=== PATIENT | female | born 1950 | race Caucasian/White ===

== ENCOUNTER 2019-01-11 10:45 | Inpatient (IN) ==
--- NOTE | 2018-12-23 14:39 | PAT Medication Instructions ---
Medication Instructions Date of Service December 23, 2018 Home Medications calcium carbonate-vitamin D3 [Calcium 600 + D(3)] 2 cap PO DAILY levothyroxine 112 mcg PO QAM meloxicam 15 mg PO DAILY PRN solifenacin [Vesicare] 10 mg PO HS venlafaxine 75 mg PO QAM ASK your surgeon for instructions meloxicam 15 mg PO DAILY PRN DO NOT take the morning of surgery calcium carbonate-vitamin D3 [Calcium 600 + D(3)] 2 cap PO DAILY Take morning of surgery With a small sip of water, OTHERWISE NOTHING TO EAT OR DRINK AFTER MIDNIGHT: levothyroxine 112 mcg PO QAM venlafaxine 75 mg PO QAM Take evening before surgery solifenacin [Vesicare] 10 mg PO HS Other Notes If you have any questions please call us at [phone] or [phone] or [phone] or [phone]
--- NOTE | 2018-12-27 12:11 | Anesthesiology Consultation ---
Date of Service December 27, 2018 Assessment & Plan (1) Encounter for pre-operative examination: Chart Review Chart Review: Acceptable Risk for Surgery (pending surgeon-ordered PCP clearance scheduled 01/05 (Romaine Camarillo)) and Patient seen in Pre Admission Testing Teaching & Discussion Pre-Anesthesia Teaching/Discussion Notes: Instructed NPO after midnight before surgery,except medications with 15 cc of water. Medication instructions provided according to the PAT guidelines. History Surgery Operation Date: 01/11/19 09:40 Proposed Procedures p Left Total Hip Arthroplasty - Mark Goldsmith MD Height/Weight Height: 5 ft 5 in Weight: 100 kg Allergies Allergy/AdvReac Type Severity Reaction Status Date / Time No Known Allergies Allergy Verified 12/22/18 10:10 Medications Home Medications Medication Instructions Recorded Confirmed Last Taken calcium carbonate-vitamin D3 2 cap PO DAILY 12/22/18 12/22/18 Unknown [Calcium 600 + D(3)] levothyroxine 112 mcg PO QAM 12/22/18 12/22/18 Unknown meloxicam 15 mg PO DAILY PRN 12/22/18 12/22/18 Unknown solifenacin [Vesicare] 10 mg PO HS 12/22/18 12/22/18 Unknown venlafaxine 75 mg PO QAM 12/22/18 12/22/18 Unknown Past Medical History Medical History Anxiety Cancer RIGHT BREAST CANCER S/P CHEMO AND RADIATION RIGHT KIDNEY TUMOR S/P EXCISION Hypothyroidism Obesity Osteoarthritis Urinary frequency Exercise / Class Metabolic Activity II 4-5 Yardwork/Stairs/Walk up hill Past Family History Family History Mother Family hx of colon cancer Past Surgical History Surgical History History of breast biopsy History of cholecystectomy History of colonoscopy History of thyroidectomy, total 2/2 THYROID NODULES History of tooth extraction History of total knee replacement B/L TKA: 04/07/16: SAB x 2 attempts + PNB at [facility] Hx of lumpectomy RIGHT SIDE X 2 Kidney tumor S/P REMOVAL S/P total abdominal hysterectomy and bilateral salpingo-oophorectomy Strabismus S/P REPAIR Past Anesthesia History No Hx of Anesthesia Complications and No Family Hx of Anesthesia Complications History of PONV No Hx of PONV and No Hx of Motion Sickness Social History Smoking Status: Never smoker Do You Dip or Chew Tobacco: No Hx Alcohol Use: No Hx Substance Use: No substance use type: does not use Review of Systems Patient denies chest pain, shortness of breath, dyspnea on exertion, reflux, cough, wheezing, palpitations. Physical Exam Vital Signs VITALS BP 110/73 P 79 TEMP 98.0 SP02 96%RA RESP 16 PHYSICAL Full neck and c-spine range of motion. Full TMJ range of motion. TMD 2.5 finger breaths Mallampati Score 3 Dentition: upper partial Lungs: clear throughout to auscultation Cardiac: regular rate and rhythm, no murmurs noted Spine: normal Carotid arteries: negative bruit Extremities: no edema Testing Laboratory Results 12/27/18 12:39 12/27/18 12:39 12/27/18 12/27/18 12/27/18 12:39 12:39 12:39 PT 10.9 INR 1.1 APTT 28.5 Hemoglobin A1c 5.5 Urine Color Urine Appearance Urine pH Ur Specific [place] Urine Protein Urine Glucose (UA) Urine Ketones Urine Nitrite Ur Leukocyte Esterase Urine WBC (Auto) Urine RBC (Auto) U Hyaline Cast (Auto) U Epithel Cells (Auto) Urine Bacteria (Auto) Blood Type O Positive Antibody Screen NEGATIVE 12/27/18 Unknown PT INR APTT Hemoglobin A1c Urine Color Yellow Urine Appearance Cloudy A Urine pH 5.5 Ur Specific [place] 1.017 Urine Protein Negative Urine Glucose (UA) Negative Urine Ketones Negative Urine Nitrite Positive A Ur Leukocyte Esterase 2+ H Urine WBC (Auto) >30 H Urine RBC (Auto) 5-10 H U Hyaline Cast (Auto) 1-5 U Epithel Cells (Auto) 5-10 H Urine Bacteria (Auto) 4+ H Blood Type Antibody Screen Surgeon made aware of abnormal UA* Electrocardiogram Date: 12/27/18 NSR at 69bpm. Septal infarct (cited on/before 03/09/16). NS TWA. *Anteroseptal infarct noted on 06/30/12 EKG; subsequent stress test done 06/30/12 to evaluate.* Chest X-Ray Date: 12/27/18 Large hiatus hernia. Old, healed left rib fractures. The herniated loop of bowel is gas-filled and moderately distended. Otherwise, no acute process within the chest. Stress Test Date: 06/30/12 Type: exercise (+ Cardiolite) "Normal" myocardial perfusion imaging uptake. EF 74%. No EKG evidence for myocardial ischemia. 7.1 METS. 91% MPHR.
[2018-12-27 13:14] LABS: Basophils # (auto) 0.05 K/uL (0-0.2); Basophils % (auto) 0.9 %; Eosinophils # (auto) 0.17 K/uL (0-0.5); Eosinophils % (auto) 3.2 %; Hematocrit (blood only) 39.8 % (37-47); Hemoglobin 13.5 g/dL (12.0-16.0); Immature Granulocytes # (auto) 0.02 K/uL (0.00-0.02); Immature Granulocytes % (auto) 0.4 %; Lymphocytes # (auto) 0.94 K/uL (1.2-3.4); Lymphocytes % (auto) 17.5 %; Mean Corpuscular Hgb Conc 33.9 g/dL (32-36); Mean Corpuscular Volume 84.3 fL (80-100); Mean Platelet Volume 11.3 fL (7.4-10.4); Monocytes # (auto) 0.89 K/uL (0.11-0.59); Monocytes % (auto) 16.5 %; Neutrophils # (auto) 3.31 K/uL (1.4-6.5); Neutrophils % (auto) 61.5 %; Platelet Count 193 K/uL (130-400); RDW Coefficient of Variation 14.2 % (11.5-14.5); RDW Standard Deviation 44.2 fL (36.4-46.3); Red Blood Count 4.72 M/uL (4.2-5.4); White Blood Count 5.38 K/uL (4.8-10.8)
[2018-12-27 13:19] LABS: Appearance Urine Cloudy (Clear); Bacteria Urine Automated 4+ (Negative); Bilirubin Urine Negative (Negative); Blood Urine 2+ (Negative); Color Urine Yellow; Glucose Urine UA Negative (Negative); Ketones Urine Negative (Negative); Leukocyte Esterase Urine 2+ (Negative); Nitrite Urine Positive (Negative); Protein Urine Negative (Negative); Specific Gravity Urine 1.017 (1.000-1.030); Urobilinogen Urine Negative (Negative); WBC Urine Automated >30 /hpf (0-5); pH Urine 5.5 (4.5-7.5)
[2018-12-27 13:29] LABS: INR 1.1 (0.9-1.1); Partial Thromboplastin Ratio 1.1; Partial Thromboplastin Time 28.5 Seconds (21.0-31.0); Prothrombin Time 10.9 Seconds (9.0-12.0)
[2018-12-27 13:41] LABS: Albumin Level 3.1 gm/dl (3.4-5.0); BUN Creatinine Ratio 23.5 (10-20); Calcium 9.4 mg/dl (8.5-10.1); Creatinine Clr Calc Pharmacy 85.3 ml/min; Est GFR (African American) 95.6; Est GFR (Non-African American) 82.5; Potassium 3.9 mmol/L (3.5-5.1)
--- NOTE | 2018-12-27 13:52 | XRay Report ---
XR chest Pre-admission PA/Lat HISTORY: Preop. COMPARISON: Preop. FINDINGS: Large hiatus hernia. Old, healed left rib fractures. No pleural effusions. No pneumothorax. Prior cholecystectomy. The heart is normal in size. No focal lung consolidations to suggest pneumoni a. No evidence for pulmonary edema. IMPRESSION: 1. Large hiatus hernia. The herniated loop of bowel is gas-filled and moderately distended. 2. Otherwise, no acute process within the chest. Electronically signed by: Sid Stevens M.D. 12/27/2018 1:50 PM
[2018-12-27 14:01] LABS: Estimated Average Glucose 111 mg/dl; Hemoglobin A1C 5.5 % (4.5-5.6)
--- NOTE | 2019-01-10 15:55 | History and Physical Report ---
DATE OF ADMISSION: 01/11/2019 CHIEF COMPLAINT: Chronic left hip pain. HISTORY OF PRESENT ILLNESS: This is a 68-year-old female patient of Dr. Goldsmith'edenilson complaining of chronic left hip pain, longstanding, now progressively getting worse. The patient has been diagnosed with end-stage osteoarthritis per clinical and radiographic exams. The patient has failed conservative treatment including anti-inflammatories and the use of a home exercise program. She has increased pain with weightbearing activities and her pain does interfere with her activities of daily living. PAST MEDICAL HISTORY: Heart murmur, hypothyroidism, osteoarthritis, hiatal hernia, obesity, partial dentures, history of breast cancer and kidney cancer. SOCIAL HISTORY: Nonsmoker, nondrinker. PAST SURGICAL HISTORY: Lumpectomy x2, hysterectomy, thyroidectomy, bilateral knee replacements. FAMILY HISTORY: Noncontributory. REVIEW OF SYSTEMS: Chronic left hip pain. Otherwise, denies any shortness of breath, chest pain, nausea, vomiting or any other joint complaints. MEDICATIONS: 1. Levothyroxine 112 mcg daily. 2. VESIcare 10 mg daily. 3. Venlafaxine 75 mg daily. 4. Calcium with vitamin D 600 twice daily. ALLERGIES: No known drug allergies. PHYSICAL EXAMINATION: GENERAL: Well-developed, well-nourished 68-year-old female in no acute distress. She is alert and oriented x3 and pleasant. HEENT: Normocephalic, atraumatic. Extraocular motions are intact. Pupils are equal and reactive to light. HEART: Regular rate and rhythm, no murmurs. LUNGS: Clear. ABDOMEN: Soft, nontender, bowel sounds present. EXTREMITIES: Left hip. She has pain with passive range of motion including internal and external rotation. She has a mild flexion contracture with ambulation. She has 5/5 strength in her lower extremity with pain. NEUROLOGIC: Neurovascularly, she is intact in her left lower extremity. Leg length measures about 1 cm shorter than the right. DIAGNOSES: Left hip end-stage osteoarthritis, history of a heart murmur, hypothyroidism, osteoarthritis, hiatal hernia, and obesity, breast cancer, kidney cancer. PLAN: The patient was advised of her diagnosis. Indications, risks, benefits, postop course have all been reviewed. The patient wished to proceed with a left total hip arthroplasty. Necessary consent forms, preoperative testing and clearances will be obtained.
[~2019-01-11 10:45] MED LIST: ACETAMINOPHEN 500 MG TAB PO SCH; BUPIVACAINE 0.5 % 5 MG/1 ML PF 10ML VIAL ONE; CEFAZOLIN 2000MG 2,000 MG/15 ML SYR IV SCH; CeleBREX 200 MG CAP PO SCH; DEXAMETHASONE SOD INJ 4 MG/ML VIAL ONE; FAMOTIDINE 20 MG TAB PO SCH; GABAPENTIN 300 MG PO SCH; GLYCOPYRROLATE 0.2 MG/ML VIAL ONE; KETAMINE HCL INJ 50 MG/ML 10 ML VIAL ONE; LIDOCAINE HCL 2% 2 ML VIAL/AMP(20MG/ML) INFIL ONE; LR 500ML BOLUS, THEN 15ML/HR IV SCH; METOCLOPRAMIDE HCL 10 MG TABLET PO SCH; MIDAZOLAM HCL 1 MG/ML 2ML VIAL ONE; ONDANSETRON INJ 2 MG/ML 2 ML VIAL ONE; PROPOFOL IV EMULSION 10 MG/ML 20 ML VIAL IV ONE; ROPIVACAINE 0.5% HCL/PF 150 MG, BUPIVACAINE 0.5% MPF 30 ML, EPINEPHrine 30MG/30ML (OR U... INFIL SCH; TRANEXAMIC ACID 1,000 MG **IV Intra-op IV SCH; TRANEXAMIC ACID 1,000 MG **IV Pre-op IV SCH; dexAMETHasone 4 MG TAB PO SCH; fentaNYL citrate 100 MCG/2 ML VIAL ONE
--- OUTSIDE RECORDS SUMMARY | 2019-01-11 10:50 | External Medical Summary | Continuity of Care Document ---
:1950 Author Name Iker Baeza Address Unavailable Unavailable , Care Team Providers Name Role Phone Ivy Baeza Unavailable [email or web address] Unavailable Unavailable Problems Active medical history not documented Allergies and Adverse Reactions Allergy history not documented Medications Medications not documented Procedures Procedures not documented Immunizations Immunizations not documented Plan of Treatment Planned Encounters Appointment; Pawel Haynes M.D. Start: 21-Feb-2019 9:45 Requ est Planned Observations Planned Goals not documented Results No Known Results Results not documented Encounters Appointment; Pawel Haynes M.D. 21-Feb-2019 9:45 Encounter Diagnosis: Problem not documented
[2019-01-11] MEDS ORDERED: ATROPINE SULFATE 0.1 MG/ML 10ML SYR IV PRN (11:01)
[2019-01-11] MEDS ORDERED: fentaNYL citrate 100 MCG/2 ML VIAL IV PRN (11:01)
[2019-01-11] MEDS ORDERED: ePHEDrine sulfate 50 MG/ML AMP IV PRN (11:01)
[2019-01-11] MEDS ORDERED: BACITRACIN INJ 50,000 UNIT VIAL ONE (11:55)
[2019-01-11] MEDS ORDERED: ORTHO JOINT ANESTHETIC ONE (11:55)
--- NOTE | 2019-01-11 12:21 | History & Physical Bridge Note ---
Date of Service January 11, 2019 History & Physical Bridge Note I have examined the patient, reviewed the History & Physical and in the interval since the performance of the History & Physical I have noted the following changes of clinical significance: no changes noted
[2019-01-11] MEDS ORDERED: PROPOFOL IV EMULSION 10 MG/ML 20 ML VIAL IV ONE ×2 (13:28)
[2019-01-11] MEDS ORDERED: POVIDONE-IODINE 10% OINT 30 GM TUBE EXT ONE (14:12)
--- NOTE | 2019-01-11 14:41 | Post Operative Brief Note ---
Immediate Post Op Note v1 Date of Surgery January 11, 2019 Pre & Post Diagnosis Operation Date: 01/11/19 12:20 Pre-Op Diagnosis: Unilateral Primary Osteoarthritis, Left Hip, obesity BMI 35.3 Post-Op Diagnosis: Unilateral Primary Osteoarthritis, Left Hip, obesity BMI 35.3 Procedure Operation Date: 01/11/19 12:20 Actual Procedures p Left Total Hip Arthroplasty(Left), increased level of difficulty due to BMI 35.3- Mark Goldsmith MD Surgeon Mark Goldsmith MD Crop Roller Golden GARCIA Estimated Blood Loss 100 Findings Consistent with Post-Op Diagnosis Specimens Femoral head Drains Hemovac Drain Anesthesia Type Spinal MAC Complications none Disposition Accompanied Patient To Recovery: No Disposition: Recovery Room Overlapping Procedure I was present for: the critical portions of procedure.
--- NOTE | 2019-01-11 15:36 | Anesthesiology Progress Note ---
Date of Service January 11, 2019 Anesthesia Post Procedure Vital Signs Vital Signs: Temp Pulse Pulse Resp BP Pulse Ox 01/11/19 15:18 37.1 C 73 15 114/70 96 01/11/19 11:11 37.1 C 72 18 144/88 H 97 Pain Intensity Left Hip: Pain Intensity: 3 Transfer of Care Handoff Completed per policy Notes Mental Status: alert / awake / arousable and participated in evaluation Patient Amnestic to Procedure: Yes Nausea / Vomiting: adequately controlled Pain: adequately controlled Airway Patency, RR, SpO2: stable & adequate BP & HR: stable & adequate Hydration State: stable & adequate Neuraxial Anesthesia: was administered and sensory block is resolving Anesthetic Complications: no major complications apparent and Pt Satisfied with anesthetic care
--- NOTE | 2019-01-11 16:07 | XRay Report ---
XR hip 1V LT w pelvis CLINICAL HISTORY: Postoperative evaluation. COMPARISON: None FINDINGS: Alignment of the total left hip arthroplasty is anatomic. There is no fracture or unexpect ed radiopaque foreign body. There are drains and acetabular screws. IMPRESSION: Expected findings following total left hip arthroplasty. Electronically signed by: Randall Santoyo M.D. 01/11/2019 4:06 PM
[2019-01-11] MEDS ORDERED: BISACODYL 10 MG SUPP PR PRN (16:24)
[2019-01-11] MEDS ORDERED: ONDANSETRON INJ 2 MG/ML 2 ML VIAL IV PRN (16:24)
[2019-01-11] MEDS ORDERED: SODIUM CHLORIDE 0.9% 1000ML 1,000 ML IV SCH (16:24)
[2019-01-11] MEDS ORDERED: OXYCODONE HCL IR 5 MG TAB (IMMEDIATE RELEASE) PO PRN (16:24)
[2019-01-11] MEDS ORDERED: MAGNESIUM HYDROXIDE SUSP 30 ML UDC PO PRN (16:24)
[2019-01-11] MEDS ORDERED: NALOXONE HCL 0.4 MG/1 ML VIAL/CARP IV PRN (16:24)
[2019-01-11] MEDS ORDERED: HYDROmorphone INJ 0.5 MG/0.5 ML SYR IV PRN (16:24)
[2019-01-11] MEDS: FERROUS GLUCONATE 324 MG TAB PO SCH (18:45)
[2019-01-11] MEDS: KETOROLAC TROMETHAMINE 15 MG/ML VIAL IV SCH ×2 (18:49→23:29)
--- NOTE | 2019-01-11 20:02 | Operative Report ---
Post Operative Report Pre & Post Diagnosis Operation Date: 01/11/19 12:20 Pre-Op Diagnosis: Unilateral Primary Osteoarthritis, Left Hip, obesity BMI 35.3 Post-Op Diagnosis: Unilateral Primary Osteoarthritis, Left Hip, obesity BMI 35.3 Procedure Operation Date: 01/11/19 12:20 Actual Procedures p Left Total Hip Arthroplasty(Left), application superficial wound VAC, increased difficulty BMI 35.3- Mark Goldsmith MD Surgeon Mark Goldsmith MD [employer] Structure [employer]sembler Golden GARCIA Estimated Blood Loss 100 Findings Consistent with Post-Op Diagnosis Specimens Femoral head Drains 2 Hemovac Anesthesia Type Spinal MAC Complications none Disposition Accompanied Patient To Recovery: No Disposition: Recovery Room Indications 68-year-old female with progressive osteoarthritis of the left hip failed conservative management. Radiograph symmetry advanced osteoarthritis her left hip with [id number] and osteophytes. Description of Procedure Patient taken to the operating room and anesthetized under spinal anesthesia and sedation. Patient was placed supine on the operating table. Exam of the involved extremity demonstrated she had range of motion with flexion to 90 degrees internal rotation limited to about 15 degrees and abduction limited to about 30 degrees. She had an obese abdomen obese thigh and obese hip area over the operative site..The patient was placed on a sacral pad and the involved leg was placed on a foot bump to flex knee 90 and hip 60. A Armijo-type approach was performed to the hip. A longitudinal lateral incision was made over the hip. The skin was incised sharply. The fat was divided down to the fascia. Deeper than typical layer of fat was divided down to the fascia. We had used Eliazar retractors to help retract the deep layer of subcutaneous fat. Subcutaneous bleeders are cauterized. Trochanteric bursa was resected. A split was made in the gluteus medius muscle between the anterior 40% and posterior 60%. The minimus was divided longitudinally reflected off the underlying capsule. The capsule was incised down to the hip joint. Upon incising into the hip joint there was a bloody effusion there were multiple loose bodies that were evacuated she had neck osteophytes and femoral head osteophytes. An incision was made through the gluteus medius leaving a cuff of tendon for repair on the greater trochanter. The vastus lateralis was split longitudinally for about 3 cm. A muscular capsular flap was elevated off the hip. The hip was dislocated with use of bone hook and with flexion and external rotation of the hip. The femoral neck cut was made approximately 15 mm proximal to the lesser trochanter in neutral anteversion. Head and neck fragment were removed. The femoral head demonstrated exposed bone on the femoral head grade 4 wear and some deformity. A self-retaining superior tractor was impacted into the ilium, a blunt Jorge retractor was placed anteriorly a double angled inferior retractor was placed on the ischium. The acetabulum demonstrated arthritic wear superior and posterior with a large bony ossicle or calcified posterior labrum superiorly and junior systems analyst iorly.. The acetabular labrum was resected all osteophytes were resected including the large calcified labrum bony structure.The soft tissue in the acetabular fossa was resected. An anterior capsular release was performed. Some the capsule was resected for exposure. The first reamer was used to medialize reaming to the inner table and then sequential reamers for the acetabulum were used in 2 mm increments up to a size 50 mm. I used the [employer] total hip arthroplasty system using a PSL type cup. Trial reduction demonstrated a 50 millimeter cup was the appropriate size and fit. The placem ent of the final implant was performed after irrigating the acetabulum with antibiotic solution with pulsatile lavage. The position of the cup was approximately 15 anteversion 45 abduction. Good fixation was performed. Two 6.5 mm cancellus screws were placed in the posterior superior quadrant for further fixation through the cup. The acetabular liner was impacted into position. The Trident X3 10 degree polyethylene 36 mm diameter E acetabular liner was used.The Orthomix coctail injected into the capsule around the acetabular component and deeper muscles. The retractors removed and attention was taken to the femur. The femur was exposed with flexion external rotation. A Canal reamer was used followed by sequential tapered Accolade 2 broaches up to a size 4. This had a good fit and fill. Trial reduction was performed with a 132 degree neck angle based on preoperative templating. A + 0 neck length gave equal leg lengths and stable range of motion through full flexion flexion adduction and internal rotation and extension and external rotation. The trials removed and after irrigation again and the final implant was impacted which was the Accolade 2 size 4 with 132 degree neck angle. The [employer] ceramic head size 36+0 was used. After final implants replaced the reduction was noted to be stable. Betadine soak was used per protocol. 2 drains were placed deep. These were brought out laterally and connected to Hemovac. The minimus was closed with interrupted [id number] #1 Vicryl sutures. Minimus was repaired to the greater trochanter with transosseous #5 FiberWire suture with John-Petros suture technique. The medius was closed with transosseous #5 FiberWire sutures using John Petros suture technique. Lateral row soft tissue repair was performed with figure of 8 #2 FiberWire sutures. The medius split was closed with interrupted [id number] #1 Vicryl sutures. The vastus lateralis was closed with interrupted figure of eight #1Vicryl sutures. The fascia christine was closed with interrupted figure of eight #1 Vicryl sutures. 2 more drains were placed deep to the fat layer the fat was closed with [id number] #2 Vicryl sutures. Skin was closed with gracia and sterile dressings were applied occluding a superficial wound VAC. There was increased difficulty in the procedure with retraction and exposure due to her obesity. The patient tolerated procedure well. Golden GARCIA my physician ssn/ssbn assistant navigator assisted me in the procedure with patient positioning And draping soft tissue retraction instrument management suture management and assisted in the outer layer closure and will participate in the postoperative care the patient. I attest to the content of the Intraoperative Record and any orders documented therein. Any exceptions are noted below.
[2019-01-11] MEDS: ASPIRIN 81 MG ECTAB PO SCH (20:39)
[2019-01-11] MEDS: SENNA 8.6 MG TAB PO SCH (20:39)
[2019-01-11] MEDS: DOCUSATE SODIUM 100 MG CAP PO SCH (20:39)
[2019-01-11] MEDS: CEFAZOLIN 2000MG 2,000 MG/15 ML SYR IV SCH (20:42)
[2019-01-11] MEDS: ACETAMINOPHEN 500 MG TAB PO SCH (20:55)
[2019-01-12] MEDS: KETOROLAC TROMETHAMINE 15 MG/ML VIAL IV SCH ×4 (05:11→23:48)
[2019-01-12] MEDS: LEVOTHYROXINE SODIUM 112 MCG TABLET PO SCH (05:11)
[2019-01-12] MEDS: ACETAMINOPHEN 500 MG TAB PO SCH ×3 (05:11→21:02)
[2019-01-12] MEDS: CEFAZOLIN 2000MG 2,000 MG/15 ML SYR IV SCH (05:11)
[2019-01-12 06:22] LABS: Basophils # (auto) 0.01 K/uL (0-0.2); Basophils % (auto) 0.1 %; Hematocrit (blood only) 34.2 % (37-47); Hemoglobin 10.9 g/dL (12.0-16.0); Immature Granulocytes # (auto) 0.05 K/uL (0.00-0.02); Immature Granulocytes % (auto) 0.3 %; Lymphocytes # (auto) 0.75 K/uL (1.2-3.4); Lymphocytes % (auto) 4.8 %; Mean Corpuscular Hgb Conc 31.9 g/dL (32-36); Mean Corpuscular Volume 85.1 fL (80-100); Monocytes % (auto) 5.8 %; Platelet Count 222 K/uL (130-400); RDW Coefficient of Variation 13.7 % (11.5-14.5); RDW Standard Deviation 42.4 fL (36.4-46.3); Red Blood Count 4.02 M/uL (4.2-5.4); White Blood Count 15.61 K/uL (4.8-10.8)
[2019-01-12 06:53] LABS: Calcium 8.5 mg/dl (8.5-10.1); Creatinine Clr Calc Pharmacy 74.6 ml/min; Est GFR (African American) 79.9; Est GFR (Non-African American) 68.9; Potassium 4.2 mmol/L (3.5-5.1)
[2019-01-12] MEDS: VENLAFAXINE HCL XR 75 MG CAPXR PO SCH (08:43)
[2019-01-12] MEDS: MULTIVITAMIN TAB PO SCH (08:43)
[2019-01-12] MEDS: DOCUSATE SODIUM 100 MG CAP PO SCH ×2 (08:43→20:35)
[2019-01-12] MEDS: CALCIUM 600MG + VIT D 400 IU TAB PO SCH (08:43)
[2019-01-12] MEDS: FERROUS GLUCONATE 324 MG TAB PO SCH ×2 (08:43→18:02)
--- NOTE | 2019-01-12 09:02 | Hospitalist Consultation ---
Date of Consultation January 12, 2019 Assessment & Plan (1) Degenerative joint disease of left hip: - S/P L ANDRAE on 01/11 and doing well post-operatively - Pain management, PT/OT, DVT prophylaxis, Surgical Management per primary - DVT prophylaxis - ASA 81 mg BID Patient is stable in her chronic medical conditions. She anticipates return home tomorrow. Given some urinary symptoms recommend treatment for UTI as depicted below. No other acute needs identified. Hospitalist service will sign off at this time. Do not hesitate to contact us for questions or a change in medical status. Present on Admission?: Yes (2) UTI (urinary tract infection): - Reporting baseline frequency however worsening over past couple weeks with associated urgency; Also reporting increased fatigue - She also reports upcoming procedure with Dr. Arce and therefore will treat for UTI - which Cx reveals pansensitive e. coli - Keflex 500 mg BID x 5 days Present on Admission?: Yes (3) Hypothyroidism: - Continue Levothyroxine 112 mcg daily - If fatigue continues after treatment of UTI could check TSH/T4 but could be referred to outpatient once recovered from surgery as reactive elevations are possible (4) Depression: - Continue Venlafaxine 75 mg daily Supervising Physician Co-Signing Physician Notes Attending note: patient seen and examined with Maine Posada PA-C on day of consult. I agree with her HPI, history, exam, ROS and A/P. I personally reviewed the labs and imaging findings. patient doing great from surgical perspective, s/p L ANDRAE. pain is well controlled, up with therapy. No chest pain or dyspnea. No fever or chills. - UTI, E coli: will complete a short course of Keflex - Hypothyroidism: continue Synthroid - Depression: continue Effexor - s/p L ANDRAE: pain control, DVT prophylaxis, d/c planning per ortho encouraged patient to take deep breaths using incentive spirometer History of Present Illness Reason for Consultation: Med Management Attending Physician: Mark Goldsmith MD History of Present Illness Ms. Manuel is a 68 y/o female with PMHx of Hypothyroidism and H/O Breast and Kidney CA who is S/P L ANDRAE on 01/11. Patient is doing well post-operatively with good pain control. Tolerating a diet without issue. Anticipating discharge tomorrow. She reports stability of her chronic medical conditions. No new medications or diagnoses. No cardiac history or H/O PE/DVT. Her pre-operative UA and Cx reveal a pansensitive E. coli UTI which she states she has noticed some urinary symptoms. She states she has some chronic urinary frequency but has noticed this has been more significant lately. She also reports more fatigue. She has not been on recent antibiotics for UTIs. Will start Keflex BID to complete a 5 day course. Allergies Allergy/AdvReac Type Severity Reaction Status Date / Time No Known Allergies Allergy Verified 01/11/19 11:34 Home Medications Home Medications Medication Instructions Recorded Confirmed Type Calcium 600 + D(3) 2 cap PO DAILY 12/22/18 01/11/19 History levothyroxine 112 mcg PO QAM 12/22/18 01/11/19 History solifenacin [Vesicare] 10 mg PO HS 12/22/18 01/11/19 History venlafaxine 75 mg PO QAM 12/22/18 01/11/19 History acetaminophen [Tylenol Extra 1,000 mg PO Q8 30 Days #180 tab 01/13/19 Rx Strength] aspirin [Ecotrin Low Strength] 81 mg PO BID 30 Days #60 tab 01/13/19 Rx oxycodone 5 mg PO Q4H PRN #30 tab 01/13/19 Rx Patient History Medical History Anxiety Cancer RIGHT BREAST CANCER S/P CHEMO AND RADIATION RIGHT KIDNEY TUMOR S/P EXCISION Hypothyroidism Osteoarthritis Urinary frequency Obesity Surgical History History of breast biopsy History of cholecystectomy History of colonoscopy History of thyroidectomy, total 2/2 THYROID NODULES History of tooth extraction History of total knee replacement B/L TKA: 04/07/16: SAB x 2 attempts + PNB at [facility] Hx of lumpectomy RIGHT SIDE X 2 Kidney tumor S/P REMOVAL S/P total abdominal hysterectomy and bilateral salpingo-oophorectomy Strabismus S/P REPAIR Family History Mother Family hx of colon cancer Social History Preferred Language: Thai Communication Ability: Effective 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 Beliefs That Will Affect Care: None Current Living Situation: Alone Other Information That Helps Us Care for You: No Feels Safe at Home: Yes Safety Concerns: Feels Safe At This Time Smoking Status: Never smoker Do You Dip or Chew Tobacco: No Second Hand Exposure: No Tobacco Cessation Education Requested by Patient: No Hx Alcohol Use: No Hx Substance Use: No Review of Systems Constitutional: + fatigue; no fever and no chills Eyes: no worsening vision Ear, Nose, Mouth, Throat: no sore throat, no hoarseness and no dysphagia Respiratory: no cough and no dyspnea Cardiovascular: no chest pain, no palpitations and no edema Gastrointestinal: no abdominal pain, no nausea, no vomiting, no constipation and no diarrhea/loose stools Genitourinary: + urinary frequency, + urinary urgency and + urinary incontinence; no dysuria, no hematuria, no flank pain and no pelvic pain Musculoskeletal: no joint pain Integumentary: no rash Physical Exam Constitutional: WD/WN, vitals as above Eyes: + anicteric sclerae; no conjunctival abnormality ENMT: Ears: no hearing impairment Neck: normal visual inspection and trachea midline Respiratory: normal respiratory effort, lungs clear to auscultation Cardiovascular: RRR, no murmur, no edema Gastrointestinal (Abdomen): Inspection/Auscultation: normal bowel sounds Percussion/Palpation: abdomen soft; abdomen nontender Musculoskeletal: wound vac placed to L hip with surrounding skin without erythema Skin: no rashes, warm and dry Neurologic: moves all extremities Psychiatric: A+Ox3, euthymic affect Results & Data Vital Signs (Past 12 Hours) Vital Signs Temp Pulse Resp BP Pulse Ox 01/12/19 07:37 36.8 C 78 20 112/78 97 01/12/19 03:09 36.8 C 64 17 94/55 L 92 01/11/19 23:10 36.5 C 68 18 107/57 L 94 PG Care Time/CCT Total # of Minutes Spent Total Time Spent with Patient: Total time spent is greater than 50% in coordina tion of care (as documented) at patient's floor/unit and/or counseling patient:
--- NOTE | 2019-01-12 09:07 | Orthopedic Progress Note ---
Date of Service January 12, 2019 Assessment & Plan (1) Degenerative joint disease of left hip: POD #1, Left ANDRAE PT/ OT DVT proph- ASA D/C planning- Home w HH Re check U/A As per medicine. Subjective POD #1, doing well, denies sob, cp, n/v. Pain controlled well. Per nursing, had UTI approx 2 weeks ago and patient states has not been treated but does have upcoming urology appt. Physical Exam Physical Exam: Left hip prevena in tact. no erythema. Toes and ankle mobile. No calf tenderness. A&Ox3. Results & Data Vital Signs (Past 12 Hours) Vital Signs Temp Pulse Resp BP Pulse Ox 01/12/19 07:37 36.8 C 78 20 112/78 97 01/12/19 03:09 36.8 C 64 17 94/55 L 92 01/11/19 23:10 36.5 C 68 18 107/57 L 94
[2019-01-12] MEDS: ASPIRIN 81 MG ECTAB PO SCH ×2 (09:08→20:35)
[2019-01-12] MEDS: cephALEXin 500 MG CAP PO SCH ×2 (10:26→20:35)
[2019-01-12] MEDS: SENNA 8.6 MG TAB PO SCH (20:35)
[2019-01-12] MEDS ORDERED: TOLTERODINE TARTRATE LA 4 MG CAPCR PO SCH (21:00)
[2019-01-13] MEDS: ACETAMINOPHEN 500 MG TAB PO SCH (05:13)
[2019-01-13] MEDS: KETOROLAC TROMETHAMINE 15 MG/ML VIAL IV SCH (05:14)
[2019-01-13] MEDS: LEVOTHYROXINE SODIUM 112 MCG TABLET PO SCH (05:14)
--- NOTE | 2019-01-13 08:13 | Orthopedic Progress Note ---
Date of Service January 13, 2019 Assessment & Plan (1) Degenerative joint disease of left hip: POD #2, Left ANDRAE PT/ OT DVT proph- ASA D/C planning- Home w HH today. Re check U/A As per medicine. Subjective POD #2, doing well, denies sob, cp, n/v. Pain controlled well. Per nursing, had UTI approx 2 weeks ago and patient states has not been treated but does have upcoming urology appt. on keflex per medicine Physical Exam Physical Exam: Left hip prevena c/d/i, no erythema, toes and ankle mobile, A&Ox3. Results & Data Vital Signs (Past 12 Hours) Vital Signs Temp Pulse Pulse Resp BP BP Pulse Ox 01/13/19 07:59 36.6 C 67 62 16 117/70 119/66 97 01/13/19 06:02 36.6 C 62 16 117/70 97 01/12/19 23:12 36.6 C 61 16 127/77 97
[2019-01-13] MEDS: CALCIUM 600MG + VIT D 400 IU TAB PO SCH (08:29)
[2019-01-13] MEDS: DOCUSATE SODIUM 100 MG CAP PO SCH (08:30)
[2019-01-13] MEDS: cephALEXin 500 MG CAP PO SCH (08:30)
[2019-01-13] MEDS: ASPIRIN 81 MG ECTAB PO SCH (08:30)
[2019-01-13] MEDS: VENLAFAXINE HCL XR 75 MG CAPXR PO SCH (08:32)
[2019-01-13] MEDS: FERROUS GLUCONATE 324 MG TAB PO SCH (08:32)
[2019-01-13] MEDS: MULTIVITAMIN TAB PO SCH (08:32)
--- NOTE | 2019-01-24 15:14 | Discharge Summary ---
DISCHARGE DIAGNOSIS: Degenerative joint disease, left hip. SECONDARY DIAGNOSES: History of heart murmur, hypothyroidism, osteoarthritis, hiatal hernia, obesity, history of breast carcinoma and renal carcinoma in the past. CONSULTS: Maine Posada PA-C/Adryan Galan D.O. BRIEF HISTORY: As dictated in history and physical. HOSPITAL SUMMARY: The patient was admitted on the above-noted date and had the above-noted surgery performed, which she tolerated well. On the first postoperative day, patient was seen by medicine service for consultation for postop medical management and was remaining stable. She was doing well and had no complaints. Pain was controlled. Per nursing staff she had had a UTI approximately 2 weeks ago and patient states that it had not been treated, but does have an upcoming urology appointment. Her left hip Prevena was intact. No erythema. Toes and ankle were mobile. No calf tenderness. She was alert and oriented x3. Vital signs were stable. She was afebrile. She was started on PT, OT protocol, continued on DVT prophylaxis and pain management. Medicine was planning to start the patient on Keflex 500 mg p.o. b.i.d. for 5 days, not including the postoperative antibiotics that she was to be given for 24 hours. She was otherwise remaining stable and was progressing with her physical therapy and plans were for home health services upon discharge. She was otherwise remaining stable and it was felt she could be discharged to home on 01/13/2019. For further review, please see chart. LABORATORY AND X-RAY DATA: As per chart. DISCHARGE INSTRUCTIONS: The patient was discharged to home in satisfactory condition on 01/13/2019. DIET: Regular. ACTIVITY: Weightbearing as tolerated left lower extremity. Follow ANDRAE instruction sheets and special care instructions as noted. DISCHARGE MEDICATIONS: Acetaminophen 1000 mg p.o. q. 8 hours, aspirin 81 mg p.o. b.i.d., oxycodone 5 mg p.o. q. 4 hours p.r.n. Resume home meds as listed and stop taking Meloxicam.
== END 2019-01-13 11:18 | disposition home health service (06) | DRG 470 ==
LOC: ASU 10:45 → 3E 15:25
DX: E03.9 Hypothyroidism, unspecified; M16.12 Unilateral primary osteoarthritis, left hip; E66.9 Obesity, unspecified; Z79.899 Other long term (current) drug therapy; Z68.35 Body mass index [BMI] 35.0-35.9, adult